=== PATIENT | male | born 1930 | race Caucasian/White ===

== ENCOUNTER 2017-05-01 18:07 | Emergency (ER) | payer OTHER, MEDICARE, MEDICAID ==
[~2017-05-01] VITALS: Ht 180.3 cm; Wt 95.0 kg
[2017-05-01 18:09] VITALS: BP 115/85; PULSE 84; RESP 19; TEMP 98.6; O2SAT 94
[2017-05-01 18:13] VITALS: BP 115/58; PULSE 78; RESP 18; O2SAT 98
[2017-05-01] MEDS ORDERED: LEVO.075 PO (18:24)
[2017-05-01] MEDS ORDERED: METO25TA3 PO (18:24)
[2017-05-01] MEDS ORDERED: ZOCO10TA PO (18:24)
[2017-05-01] MEDS ORDERED: COUM2.5T PO (18:24)
[2017-05-01] MEDS ORDERED: ASPI-516 CHEW (18:25)
[2017-05-01] MEDS ORDERED: RAMI5CAP PO (18:25)
[2017-05-01] MEDS ORDERED: SODIUM CHLORIDE 0.9% FLUSH 10 ML FLUSH IVF PRN (18:30)
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
[2017-05-01] MEDS ORDERED: IOHEXOL 350 MG/ML 10 ML VIAL (for RAD DIAG) IVCONTRAST ONE (19:19)
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
--- NOTE | 2017-05-02 09:40 | EKG ---
Date Performed: 05/01/2017 Time Performed: 20:21:58 PTAGE: 86 years EKG: ATRIAL FIBRILLATION LEFT BUNDLE BRANCH BLOCK ABNORMAL ECG NO PREVIOUS TRACING DOCTOR: Quique Whitaker Interpretating Date/Time 05/02/2017 09:39:58
== END 2017-05-01 21:16 | disposition home or self-care (01) ==
LOC: NEPE 18:07
DX: S09.90XA Unspecified injury of head, initial encounter (principal); S20.211A Contusion of right front wall of thorax, initial encounter; K80.20 Calculus of gallbladder without cholecystitis without obstruction; J84.9 Interstitial pulmonary disease, unspecified; M41.9 Scoliosis, unspecified; I48.91 Unspecified atrial fibrillation; I44.7 Left bundle-branch block, unspecified; R94.31 Abnormal electrocardiogram [ECG] [EKG]; V48.5XXA Car driver injured in noncollision transport accident in traffic accident, initial encounter
CPT/HCPCS: 70450; 71045; 71260; 72125; 72129; 72132; 72170; 74177; 93005; 99285; Q9967